=== PATIENT | female | born 1950 | race Caucasian/White ===

== ENCOUNTER 2016-12-07 12:57 | Emergency (ER) | payer MEDICARE, OTHER ==
[~2016-12-07] VITALS: Ht 162.6 cm; Wt 92.5 kg
[~2016-12-07 12:57] MED LIST: ASPI-482 PO; BUSP5TAB PO; CITA40TA12 PO; CYCL-331 PO; LAMO100T PO; LEVO75TA5 PO; LISI1TAB3 PO; NEBI5TAB2 PO; PANT40TA3 PO; PANT40TA5 PO; PRAV80TA2 PO; TIOT18CA IH; TIZA4TAB8 PO; TRAZADONE; VARE1TAB20 PO; ZOLP10TA PO
[2016-12-07 13:05] VITALS: BP 129/74
[2016-12-07] MEDS ORDERED: DIAZ5TAB PO (13:35)
--- NOTE | 2016-12-07 13:36 | PHYS DOC ---
Past History Past Medical History: CAD, COPD, GERD, High Cholesterol, Hypertension, Hypothyroid, Lung Disease, Pneumonia, Other Past Surgical History: Cholecystectomy, Hysterectomy, Tubal ligation, Other Smoking: Greater than 1 pack/day Alcohol Use: None Drug Use: None Adult General Chief Complaint Chief Complaint: UPPER EXTREMITY PAIN [facility] This is a very pleasant 66-year-old female who presents with shoulder pain that began her for fall 4 weeks ago. Patient was standing on a unsecured table she is trying to change a light bulb when she fell through the table landing on her right elbow on the table surface at a 90 angle. She really had pain in the elbow and shoulder and was seen and evaluated at a another emergency department. X-rays were completed at the time she was told she had no fracture and the arm. She also was told she had no fracture of the shoulder. Patient's symptoms is not improved and back to stiffness and pain in her shoulder has increased. She describes achy pain with certain range of motion. This patient with external rotation and abduction of the shoulder itself while she reaches overhead. Patient denies any numbness and tingling into the hand forearm elbow or shoulder. She denies any loss of consciousness or neck pain associated with this particular injury. Patient's pain is specifically over the anterior portion of the deltoid along the bicipital groove and is worsened by laying on it or direct pressure over the lateral shoulder. The pain is described as achy about a 9 of 10 with direct pressure is 6 at 10 although time. She is not able to take Tylenol or Motrin [id number] as it affects her stomach and an adverse way. She do not believe her shoulder is fractured but is looking for other alternative treatments for spasm and pain. Review of Systems Review of Systems Constitutional: Denies fever or chills [] Eyes: Denies change in visual acuity, redness, or eye pain [] HENT: Denies nasal congestion or sore throat [] Respiratory: Denies cough or shortness of breath [] Cardiovascular: No additional information not addressed in HPI [] GI: Denies abdominal pain, nausea, vomiting, bloody stools or diarrhea [] : Denies dysuria or hematuria [] Musculoskeletal: Complains of right shoulder pain and right elbow pain Integument: Denies rash or skin lesions [] Neurologic: Denies headache, focal weakness or sensory changes [] Endocrine: Denies polyuria or polydipsia [] Current Medications Current Medications Current Medications Medications (Trade) Dose Ordered Sig/Gaob Start Time Stop Time Status Last Admin Dose Admin Diazepam (Valium) 5 mg 1X ONCE 12/07/16 13:30 12/07/16 13:31 UNV Allergies Allergies Allergies Uncoded Allergies Type Severity Reaction Last Updated Verified PCN Allergy Intermediate 10/25/13 Physical Exam Physical Exam Vital signs reviewed on the chart and documented on the chart demonstrate normal vital signs no hypertension, no hypoxia and no tachypnea no fever. Constitutional: Well developed, well nourished, no acute distress, non-toxic appearance. [] Neck: Normal range of motion, no tenderness, supple, no stridor. [] Cardiovascular:Heart rate regular rhythm, no murmur [] Lungs & Thorax: Bilateral breath sounds clear to auscultation [] Skin: Warm, dry, no erythema, no rash. [] Back: She does have tenderness along the sits muscles posterior aspect of the shoulder and lateral medial shoulder. She also has distinct tenderness to palpation along the bicipital groove that is increased with biceps flexion. She has marked tenderness to palpation with external rotation at the shoulder and internal rotation reaches a positive Hawking's impingement sign. Extremities: He has tenderness to palpation over the anterior and lateral aspect of the deltoid. There is specific tenderness along the groove. Decreased range of motion secondary to pain. Patient has brisk capillary refill +2 over itself. Patient has brisk peripheral pulses at the ulnar radial artery. Patient has tenderness to palpation over the lateral shoulder without obvious signs of crepitus or bony deformity. Elbows with full range of motion no point tenderness at the epicondyles. Neurologic: Alert and oriented X 3, normal motor function, normal sensory function, no focal deficits noted. [] Psychologic: Affect normal, judgement normal, mood normal. [] EKG EKG [] Radiology/Procedures Radiology/Procedures [] Course & Med Decision Making Course & Med Decision Making Pertinent Labs and Imaging studies reviewed. (See chart for details) I reviewed patient's nursing notes and complaint as well as vital signs and my history and physical findings. Patient demonstrates she might be suffering from a bicipital tendinitis from soft tissue trauma. She also might be suffering from a rotator cuff injury. She and I both in agreement that repeat x-rays are not necessary at this time as she has great range of motion and no focal bony tenderness to palpation. Doubt humerus or shoulder fracture. She'll be given a sling, Valium for her muscle spasms as she cannot tolerate Tylenol or any calm his medication with Tylenol or any anti-inflammatories as it affects her stomach adversely. Patient be referred to orthopedic surgery for possible MRI of the shoulder to evaluate for possible soft tissue trauma to her sits muscles. [] Dragon Disclaimer Dragon Disclaimer This chart was dictated in whole or in part using Voice Recognition software in a busy, high-work load, and often noisy Emergency Department environment. It may contain unintended and wholly unrecognized errors or omissions. Departure Departure: Impression: Primary Impression: Contusion Additional Impressions: Bicipital tendinitis Rotator cuff injury Disposition: HOME, SELF-CARE Condition: STABLE Referrals: RUBA MAYS DO (PCP) FOSTER NELSON MD Patient Instructions: Bicipital Tendonitis, Contusion, Rotator Cuff Injury Additional Instructions: Please follow-up with orthopedist surgery within this next week to continue to evaluate for the possibility of rotator cuff tear. I would also advise you that you follow up with him to monitor your symptoms and possibly treat them with other modalities other than what we can provide Scripts Diazepam (VALIUM) 5 Mg Tablet 5 MG PO TID for 5 Days, #15 TAB Please use one tablet every 8 hours as needed for muscle spasms. Do not drink alcohol or use other narcotics with this medication. Prov: CHRIST AUSTIN MD 12/07/16 Problem Qualifiers CHRIST AUSTIN MD Dec 07, 2016 13:35
[2016-12-07] MEDS ORDERED: diazePAM 5 MG TABLET PO ONE (14:00)
== END 2016-12-07 13:50 | disposition home or self-care (01) ==
LOC: ER 12:57
DX: S46.011A Strain of muscle(s) and tendon(s) of the rotator cuff of right shoulder, initial encounter (principal); S50.01XA Contusion of right elbow, initial encounter; M75.21 Bicipital tendinitis, right shoulder; I25.10 Atherosclerotic heart disease of native coronary artery without angina pectoris; E03.9 Hypothyroidism, unspecified; I10 Essential (primary) hypertension; J44.9 Chronic obstructive pulmonary disease, unspecified; K21.9 Gastro-esophageal reflux disease without esophagitis; F17.200 Nicotine dependence, unspecified, uncomplicated; Z88.0 Allergy status to penicillin; W19.XXXA Unspecified fall, initial encounter; Y93.89 Activity, other specified; Y99.8 Other external cause status; Y92.89 Other specified places as the place of occurrence of the external cause
CPT/HCPCS: 99283

== ENCOUNTER 2016-12-16 13:40 | Emergency (ER) | payer MEDICARE, OTHER ==
[~2016-12-16] VITALS: Ht 162.6 cm; Wt 94.3 kg
[2016-12-16] MEDS ORDERED: KETOROLAC 30 MG/ML VIAL. IM ONE (14:30)
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
[2016-12-16 15:32] VITALS: BP 142/80
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
== END 2016-12-16 15:43 | disposition home or self-care (01) ==
LOC: ER 13:40
DX: S16.1XXA Strain of muscle, fascia and tendon at neck level, initial encounter (principal); S39.012A Strain of muscle, fascia and tendon of lower back, initial encounter; S70.01XA Contusion of right hip, initial encounter; Z72.0 Tobacco use; J44.9 Chronic obstructive pulmonary disease, unspecified; I10 Essential (primary) hypertension; Z88.0 Allergy status to penicillin; V49.9XXA Car occupant (driver) (passenger) injured in unspecified traffic accident, initial encounter; Y93.89 Activity, other specified; Y99.8 Other external cause status; Y92.481 Parking lot as the place of occurrence of the external cause
CPT/HCPCS: 72125; 72170; 96372; 99284; J1885

== ENCOUNTER → 2016-12-16 | Outpatient (CLI) | payer MEDICARE, OTHER ==
[2016-12-07 13:05] VITALS: BP 129/74
[~2016-12-16] MED LIST changes: +DIAZ5TAB PO
--- NOTE | 2016-12-16 11:30 | RAD ---
Right shoulder, 3 views, 12/16/2016: History: Shoulder pain No fracture or dislocation is identified. There is mild spurring along the glenoid rim. There are moderate degenerative changes at the AC joint. There are mild sclerotic and cystic changes at rotator cuff insertion sites on the greater tuberosity. The periarticular soft tissues are unremarkable. IMPRESSION: 1. Moderate degenerative change. 2. No acute bony abnormality is detected.
== END | disposition home or self-care (01) ==
LOC: DXRAD 10:45
PROVIDERS: ATTEND Orthopaedic Surgery
DX: M19.011 Primary osteoarthritis, right shoulder (principal)
CPT/HCPCS: 73030

== ENCOUNTER → 2017-01-02 | Outpatient (CLI) | payer MEDICARE, OTHER ==
[2016-12-16 15:32] VITALS: BP 142/80
[2017-01-02 11:12] LABS: ALBUMIN 3.3 g/dL (3.4-5.0); ALBUMIN/GLOBULIN RATIO 0.8 (1.0-1.7); CALCIUM 9.2 mg/dL (8.5-10.1); GFR 55.5; POTASSIUM 3.9 mmol/L (3.5-5.1); TOTAL BILIRUBIN 0.4 mg/dL (0.2-1.0); TOTAL PROTEIN 7.2 g/dL (6.4-8.2)
[2017-01-02 14:40] LABS: FREE T4 0.93 ng/dL (0.76-1.46); THYROID STIM HORMONE (TSH) 6.154 uIU/mL (0.358-3.740)
== END | disposition home or self-care (01) ==
LOC: LAB 10:26
PROVIDERS: ATTEND Nurse Practitioner
DX: E78.5 Hyperlipidemia, unspecified (principal); R53.83 Other fatigue
CPT/HCPCS: 36415; 80053; 80061; 84439; 84443

== ENCOUNTER → 2017-02-06 | Outpatient (CLI) | payer MEDICARE, OTHER ==
[2017-02-06 10:19] LABS: BASO # 0.1 x10^3/uL (0.0-0.2); BASO % 1 % (0-3); EOS # 0.3 x10^3/uL (0.0-0.7); EOS % 4 % (0-3); HEMATOCRIT 46.2 % (36.0-47.0); HEMOGLOBIN 15.9 g/dL (12.0-15.5); LYMPH # 1.9 x10^3/uL (1.0-4.8); LYMPH % 23 % (24-48); MEAN CORPUSCULAR HEMOGLOBIN 32 pg (25-35); MEAN CORPUSCULAR HGB CONC 34 g/dL (31-37); MEAN CORPUSCULAR VOLUME 93 fL (79-100); MONO # 0.5 x10^3/uL (0.0-1.1); MONO % 6 % (0-9); NEUT # 5.5 x10^3uL (1.8-7.7); NEUT % 66 % (31-73); PLATELET COUNT 229 x10^3/uL (140-400); RED BLOOD COUNT 4.98 x10^6/uL (3.50-5.40); RED CELL DISTRIBUTION WIDTH 13.5 % (11.5-14.5); WHITE BLOOD COUNT 8.4 x10^3/uL (4.0-11.0)
[2017-02-06 10:24] LABS: ALBUMIN 3.1 g/dL (3.4-5.0); ALBUMIN/GLOBULIN RATIO 0.8 (1.0-1.7); CALCIUM 8.7 mg/dL (8.5-10.1); GFR 55.5; POTASSIUM 3.8 mmol/L (3.5-5.1); TOTAL BILIRUBIN 0.3 mg/dL (0.2-1.0)
[2017-02-06 15:32] LABS: FREE T4 0.92 ng/dL (0.76-1.46); THYROID STIM HORMONE (TSH) 8.832 uIU/mL (0.358-3.740)
== END | disposition home or self-care (01) ==
LOC: LAB 09:37
PROVIDERS: ATTEND Nurse Practitioner
DX: E78.5 Hyperlipidemia, unspecified (principal); R53.83 Other fatigue; Z79.899 Other long term (current) drug therapy
CPT/HCPCS: 36415; 80053; 80061; 83036; 84439; 84443; 85025

== ENCOUNTER 2017-12-25 12:28 | Emergency (ER) | payer MEDICARE, OTHER ==
[~2017-12-25] VITALS: Ht 162.6 cm; Wt 94.3 kg
[2017-12-25] MEDS ORDERED: HYDROcodone/APAP 5/325MG 1 TAB TABLET PO ONE (13:00)
[2017-12-25] MEDS ORDERED: diazePAM 5 MG TABLET PO ONE (13:00)
--- NOTE | 2017-12-25 13:03 | PHYS DOC ---
Past History Past Medical History: COPD, Hypertension Additional Past Surgical Histo: knee, shoulder Smoking: Greater than 1 pack/day Alcohol Use: None Drug Use: None Adult General Chief Complaint Chief Complaint: Neck Pain HPI HPI Patient is a 67-year-old female who presents to the emergency department for evaluation of posterior neck pain, which radiates up towards the upper aspect of her cervical spine. The pain is worse with movement. She states that she had a severe pain about 10 years ago that was similar to this, but that went away. She states that she had been fine until about a week ago when she began experiencing a recurrence of her pain. She denies any headaches, numbness, weakness, or vision changes. She denies any dizziness or lightheadedness. She denies any chest pain or shortness of breath. Palpation of her neck, as well as movement of her neck seems to worsen her pain. There are no alleviating factors to her symptoms. Review of Systems Review of Systems Constitutional: Denies fever or chills [] Eyes: Denies change in visual acuity, redness, or eye pain [] HENT: Denies nasal congestion or sore throat [] Respiratory: Denies cough or shortness of breath [] Cardiovascular: The patient denies any shortness of breath, chest pain, palpitations, or orthopnea [] GI: Denies abdominal pain, nausea, vomiting, bloody stools or diarrhea [] : Denies dysuria or hematuria [] Musculoskeletal: Denies back pain or joint pain, other than posterior neck pain. [] Integument: Denies rash or skin lesions [] Neurologic: Denies headache, focal weakness or sensory changes [] Endocrine: Denies polyuria or polydipsia [] All other systems were reviewed and found to be within normal limits, except as documented in this note. Current Medications Current Medications Current Medications Medications (Trade) Dose Ordered Sig/Gabo Start Time Stop Time Status Last Admin Dose Admin Acetaminophen/ Hydrocodone Bitart (Lortab 5/325) 1 tab 1X ONCE 12/25/17 13:00 12/25/17 13:01 UNV Diazepam (Valium) 5 mg 1X ONCE 12/25/17 13:00 12/25/17 13:01 UNV Allergies Allergies Allergies Coded Allergies Type Severity Reaction Last Updated Verified Penicillins Allergy Intermediate 12/16/16 Yes Physical Exam Physical Exam PHYSICAL EXAM: CONSTITUTIONAL: Well developed, well nourished HEAD: normocephalic, atraumatic EENT: PERRL, EOMI. Conjunctivae normal color, sclerae non-icteric; moist mucous membranes. NECK: Supple, there is tenderness to palpation posteriorly at the base of the cervical spine, and the C6/7 area, with mostly posterior midline tenderness but also bilateral paraspinal tenderness. There is no anterior neck tenderness to palpation or carotid bruits present. The remainder of the cervical spine is relatively non-tender; no meningismus. LUNGS: Lungs CTA, breathing even and unlabored. Normal air movement. HEART: Regular rate and rhythm, no murmur CHEST: No deformity; non-tender ABDOMEN: The abdomen is soft, and non-tender, no masses or bruits. EXTREM: Normal ROM; no deformity, no calf tenderness. Normal pulses palpable in all extremities. There is no pedal edema. SKIN: No rash; no diaphoresis NEURO: Alert; normal speech and cognition; CN's grossly intact; strength grossly intact without focal deficit. BACK: No CVA TTP. Current Patient Data Vital Signs Vital Signs Date Time Temp Pulse Resp B/P (MAP) Pulse Ox O2 Delivery O2 Flow Rate FiO2 12/25/17 12:43 98.2 87 18 95 Room Air EKG EKG [] Radiology/Procedures Radiology/Procedures [PROCEDURE: CT CERVICAL SPINE WO CONTRAST CT study of the cervical spine without contrast Clinical indications: Posterior neck pain for 2 days. COMPARISON: Cervical spine CT study dated December 16, 2016. TECHNIQUE: Noncontrast helical CT scanning of the cervical spine was performed. Multiplanar 2-D reconstructions were generated. PQRS compliance Statement One or more of the following individualized dose reduction techniques were utilized for this study: 1. Automated exposure control 2. Adjustment of the mA and/or kV according to patient size 3. Use of iterative reconstruction technique FINDINGS: No acute fracture or discitis or osteolytic process is evident. No perching of facet joints is seen. There is degenerative endplate spurring and disc space narrowing at C3-4 and C4-5 and C5-6 and C6-7 and C7-T1. Spurring is most prominent at C5-C6. This results in a mild AP dimensional spinal canal stenosis which measures 10 mm in AP dimension within the midline. No new focal disc protrusion is evident. There is severe narrowing of the left neural foramen at the C5-6 level. IMPRESSION: No acute fracture. Degenerative cervical spondylosis most marked at C5-C6. Mild spinal canal stenosis and severe left neural foraminal narrowing is seen at this level. This is unchanged.] Course & Med Decision Making Course & Med Decision Making Pertinent Imaging studies reviewed. (See chart for details) [2:10 PM: The patient's condition remained stable. She states she is unable to take NSAIDs. I discussed importance of close PCP follow-up and return precautions.] Dragon Disclaimer Dragon Disclaimer This electronic medical record was generated, in whole or in part, using a voice recognition dictation system. Departure Departure: Impression: Primary Impression: Degenerative disc disease Additional Impression: Neck pain Disposition: 01 HOME, SELF-CARE Condition: STABLE Referrals: KVNG VIGIL APRN (PCP) Patient Instructions: Cervical Sprain, Degenerative Disk Disease Additional Instructions: Applying a heating pad to the affected area may help improve your symptoms. The prescribed medications may cause drowsiness-use caution while taking. Follow -up with your primary care provider within the next 2-3 days to help facilitate further outpatient management of your symptoms. Scripts Metaxalone (SKELAXIN) 800 Mg Tablet 1 TAB PO TID, #30 TAB Prov: GUS MCALLISTER MD 12/25/17 Acetaminophen With Codeine (TYLENOL WITH CODEINE #3 TABLET) 1 Each Tablet 1 TAB PO Q4-6HRS, #30 TAB Prov: GUS MCALLISTER MD 12/25/17 Problem Qualifiers GUS MCALLISTER MD Dec 25, 2017 13:03
--- NOTE | 2017-12-25 13:58 | RAD ---
CT study of the cervical spine without contrast Clinical indications: Posterior neck pain for 2 days. COMPARISON: Cervical spine CT study dated December 16, 2016. TECHNIQUE: Noncontrast helical CT scanning of the cervical spine was performed. Multiplanar 2-D reconstructions were generated. PQRS compliance Statement One or more of the following individualized dose reduction techniques were utilized for this study: 1. Automated exposure control 2. Adjustment of the mA and/or kV according to patient size 3. Use of iterative reconstruction technique FINDINGS: No acute fracture or discitis or osteolytic process is evident. No perching of facet joints is seen. There is degenerative endplate spurring and disc space narrowing at C3-4 and C4-5 and C5-6 and C6-7 and C7-T1. Spurring is most prominent at C5-C6. This results in a mild AP dimensional spinal canal stenosis which measures 10 mm in AP dimension within the midline. No new focal disc protrusion is evident. There is severe narrowing of the left neural foramen at the C5-6 level. IMPRESSION: No acute fracture. Degenerative cervical spondylosis most marked at C5-C6. Mild spinal canal stenosis and severe left neural foraminal narrowing is seen at this level. This is unchanged. Electronically signed by: Kirit Rubin MD (12/25/2017 1:55 PM) [facility]
[2017-12-25] MEDS ORDERED: ACET-704 PO (14:15)
[2017-12-25] MEDS ORDERED: META-21 PO (14:15)
[2017-12-25 14:29] VITALS: BP 145/76
== END 2017-12-25 14:30 | disposition home or self-care (01) ==
LOC: ER 12:28
DX: M47.892 Other spondylosis, cervical region (principal); J44.9 Chronic obstructive pulmonary disease, unspecified; I10 Essential (primary) hypertension; Z87.891 Personal history of nicotine dependence; Z88.0 Allergy status to penicillin
CPT/HCPCS: 72125; 99284-25

== ENCOUNTER → 2017-12-28 | Outpatient (CLI) | payer MEDICARE, OTHER ==
[2017-12-25 14:29] VITALS: BP 145/76
[~2017-12-28] MED LIST changes: +ACET-704 PO; +META-21 PO
== END | disposition home or self-care (01) ==
LOC: SURG 13:57
PROVIDERS: ATTEND Anesthesiology Pain Medicine
DX: I11.0 Hypertensive heart disease with heart failure (principal); I50.9 Heart failure, unspecified; E78.5 Hyperlipidemia, unspecified; E78.00 Pure hypercholesterolemia, unspecified; M19.011 Primary osteoarthritis, right shoulder; E03.9 Hypothyroidism, unspecified; J44.9 Chronic obstructive pulmonary disease, unspecified; K21.9 Gastro-esophageal reflux disease without esophagitis; I25.10 Atherosclerotic heart disease of native coronary artery without angina pectoris; Z90.49 Acquired absence of other specified parts of digestive tract; Z90.710 Acquired absence of both cervix and uterus; Z87.891 Personal history of nicotine dependence; Z88.0 Allergy status to penicillin
CPT/HCPCS: 99204

== ENCOUNTER → 2018-02-08 | Outpatient (CLI) | payer MEDICARE, OTHER ==
[~2018-02-08] MED LIST changes: +BUPIVACAINE MPF 0.25% 30 ML VIAL. ONE; +LIDOCAINE 1% PF 30 ML VIAL. ONE; +MIDAZOLAM HCL PF 2 MG/2 ML VIAL. ONE
== END | disposition home or self-care (01) ==
LOC: SURG 14:05
PROVIDERS: ATTEND Anesthesiology Pain Medicine
DX: M79.18 Myalgia, other site (principal); K21.9 Gastro-esophageal reflux disease without esophagitis; E03.9 Hypothyroidism, unspecified; Z79.899 Other long term (current) drug therapy; Z79.82 Long term (current) use of aspirin; Z88.0 Allergy status to penicillin
CPT/HCPCS: 20553; J2001; J2250; J3010; J3490; 99152; 99156

== ENCOUNTER → 2018-04-03 | Outpatient (CLI) | payer MEDICARE, OTHER ==
[~2018-04-03] MED LIST changes: -BUPIVACAINE MPF 0.25% 30 ML VIAL. ONE; -LIDOCAINE 1% PF 30 ML VIAL. ONE; -MIDAZOLAM HCL PF 2 MG/2 ML VIAL. ONE
--- NOTE | 2018-04-03 15:42 | RAD ---
CT HEAD WO CONTRAST Clinical indications: HEADACHE, severe Technique: Noncontrast axial cross sectional scanning of the head was performed. PQRS compliance Statement One or more of the following individualized dose reduction techniques were utilized for this study: 1. Automated exposure control 2. Adjustment of the mA and/or kV according to patient size 3. Use of iterative reconstruction technique COMPARISON: None available. Findings: No acute intracranial hemorrhage or midline shift or mass-effect or hydrocephalus or extra-axial fluid collection is seen. No focal hypodense area or sulci effacement is seen to indicate an acute infarct or edema radiographically. No skull fracture or pneumocephalus is seen. No opacification of the mastoid sinuses or the middle ear cavities or the paranasal sinuses is seen. The maxillary sinuses are not completely seen in this study. Impression: No acute intracranial abnormality is seen. Electronically signed by: Kirit Rubin MD (04/03/2018 3:38 PM) [facility]
== END | disposition home or self-care (01) ==
LOC: CT 14:24
PROVIDERS: ATTEND Psychiatry & Neurology Neurology
DX: R51 Headache (principal)
CPT/HCPCS: 36415; 70450; 85651

== ENCOUNTER 2021-03-25 16:43 | Emergency (ER) | payer MEDICARE, OTHER ==
[~2021-03-25] VITALS: Ht 162.6 cm; Wt 88.0 kg
[~2021-03-25 16:43] MED LIST changes: -CYCL-331 PO; +CYCL10TA19 PO; -LAMO100T PO; +LAMO100T8 PO; -LISI1TAB3 PO; +LISI1TAB35 PO; -PANT40TA5 PO; +PANT40TA6 PO
--- NOTE | 2021-03-25 18:35 | PHYS DOC ---
Past History Past Medical History: COPD, Hypertension Additional Past Surgical Histo: knee, shoulder Smoking: Greater than 1 pack/day Alcohol Use: None Drug Use: None General Adult EDM: Chief Complaint: MECHANICAL FALL HPI: HPI: 70-year-old female presents with mechanical falls at home and shortness of breath. The patient is very hard of hearing and her hearing aids are . She tells me that she has fallen a couple times because she has been startled. She does not describe any further the circumstances of her falls. She was reported to have oxygen in the low 80s on arrival. The patient has a history of COPD. She is still a smoker. She was positive for COVID-19 8 days ago. She is normally on 3 L of oxygen at night but not during the day. She denies fever or chills. She denies any significant injuries from her falls. Review of Systems: Review of Systems: Constitutional: Denies fever or chills Eyes: Denies change in visual acuity HENT: Denies nasal congestion or sore throat Respiratory: shortness of breath Cardiovascular: Denies chest pain or edema GI: Denies abdominal pain, nausea, vomiting, bloody stools or diarrhea : Denies dysuria Musculoskeletal: Denies back pain or joint pain Integument: Denies rash Neurologic: Denies headache, focal weakness or sensory changes Endocrine: Denies polyuria or polydipsia Lymphatic: Denies swollen glands Psychiatric: Denies depression or anxiety Allergies: Allergies: Allergies Coded Allergies Type Severity Reaction Last Updated Verified Penicillins Allergy Intermediate 12/16/16 Yes Physical Exam: PE: Constitutional: Well developed, well nourished, obese, no acute distress, non- toxic appearance. [] HENT: Normocephalic, atraumatic, bilateral external ears normal, oropharynx moist, no oral exudates, nose normal. Very hard of hearing. [] Eyes: PERRLA, EOMI, conjunctiva normal, no discharge. [] Neck: Normal range of motion, no tenderness, supple, no stridor. [] Cardiovascular: Heart rate regular rhythm, no murmur [] Lungs & Thorax: Decreased breath sounds in the right base [] Abdomen: Bowel sounds normal, soft, no tenderness, no masses, no pulsatile masses. [] Skin: Warm, dry, no erythema, no rash. [] Back: No tenderness, no CVA tenderness. [] Extremities: No tenderness, no cyanosis, no clubbing, ROM intact, no edema. [] Neurologic: Alert and oriented X 3, normal motor function, normal sensory function, no focal deficits noted. [] Psychologic: Affect normal, judgement normal, mood normal. [] EKG: EKG: Sinus rhythm, rate 75, leftward axis, no ST elevation or depression. [] Radiology/Procedures: Radiology/Procedures: [] Heart Score: C/O Chest Pain: N/A Risk Factors: Risk Factors: DM, Current or recent (<one month) smoker, HTN, HLP, family history of CAD, obesity. Risk Scores: Score 0 - 3: 2.5% MACE over next 6 weeks - Discharge Home Score 4 - 6: 20.3% MACE over next 6 weeks - Admit for Clinical Observation Score 7 - 10: 72.7% MACE over next 6 weeks - Early Invasive Strategies Course & Med Decision Making: Course & Med Decision Making Pertinent Labs and Imaging studies reviewed. (See chart for details) The patient does not want to cooperate. She does not want to be here. She would not let us put in an IV intake blood. I did get an EKG which is unremarkable and a chest x-ray which shows right-sided pneumonia. I explained to the patient that she has pneumonia and she should stay in the hospital. She refuses to stay in the hospital. I negotiated with her to give her Rocephin IM, Decadron p.o., and azithromycin p.o. She will let us do that and send her home with a prescription. I told her that this was dangerous and that she could get worse or and she wants to go home. I have also strongly encouraged her to stay on her 3 L of oxygen 14/11. The patient will have to sign out AMA. [] Dragon Disclaimer: Treva Disclaimer: This electronic medical record was generated, in whole or in part, using a voice recognition dictation system. Departure Departure: Impression: Primary Impression: COVID-19 Additional Impression: Pneumonia involving right lung Disposition: LEFT AGAINST MEDICAL ADVICE Condition: GUARDED Referrals: KVNG VIGIL APRN (PCP) Patient Instructions: Pneumonia, Adult, [id number] Additional Instructions: You have been tested for or diagnosed with COVID-19. It is an infection caused by a new type of coronavirus. COVID-19 will cause cold-like or mild flu symptoms in most. It can cause more severe symptoms like problems breathing in some. There is no treatment for COVID-19. The body will clear the infection over time. Self-care will help to ease discomfort. Steps to Take: Self-Care Rest as needed. Healthy habits may help you feel better. Steps include: Choose healthy foods including fruits and vegetables. Drink water throughout the day. Get plenty of sleep each night. If you smoke, try to quit. It may ease breathing. Avoid alcohol. Keep Others Healthy The virus can spread to others. Droplets are released every time you sneeze or cough. The droplets can get into the mouth, nose, or eyes of people near you and lead to infection. To lower the chances of spreading COVID-19 to others: Stay at home until your doctor has said it is safe to leave. If you tested positive this will mean staying isolated until both of the following are true: At least 7 days have passed since the start of illness. You are free of fever for at least 72 hours without the use of medicine. During this time: - Avoid public areas, events, or transportation. Do not return to work or school until your doctor has said it is safe to do so. - Call ahead if you need to go to a medical center. Let them know you may have COVID-19. It will help them guide you where to go. They may also ask you to wear a facemask when you come to the office. - If you call for emergency medical services, let them know you may have COVID- 19. While at home: - Try to avoid close contact with others. Stay about 6 feet away. - If possible, spend most of your time in a separate room from others. - Use a face mask if you will be in close contact with others such as sharing a room or vehicle. - Have someone wipe down common surfaces in the home. Use household negative turner every day on areas like doorknobs, counters, or sinks. - Cough or sneeze into a tissue. Throw the tissue away right after use. If a tissue is not available, cough or sneeze into your elbow. - Wash your hands often. Wash them after sneezing or coughing. Use soap and water and wash for at least 20 seconds. Alcohol based hand kettle cleaner can be used if soap and water is not available. - Do not prepare food for others. Avoid sharing personal items like forks, spoons, or toothbrushes. - Avoid close contact with pets while you are sick. There is no evidence of the virus passing to pets. This is a safety step until more is known about this virus. Isolation can be frustrating. Social interaction can help. Keep in touch with friends and family through phone and tech options. You can still interact with others in your home, just keep a safe distance of about 6 feet. Follow-up: Your doctors office will check in with you to see if there are any changes in your health. You may be asked to keep track of symptoms to share with them. They will also let you know when you are clear to be in public again. Problems to Look Out For: Contact your doctor if your recovery is not going as you expect. Get emergency care if you have problems such as: - Trouble breathing - Nonstop chest pain or pressure - Changes in awareness, confusion, or problems waking - Lips or face have bluish color - Worsening of symptoms If you think you have an emergency, call for emergency medical services right away. As [facility] from [facility] Azithromycin (AZITHROMYCIN TABLET) 250 Mg Tablet 250 MG PO DAILY for ANTI-BIOTIC for 4 Days, #4 TAB 0 Refills Prov: DEDRICK WELLS DO 03/25/21 Dexamethasone (Decadron) 4 Mg Tablet 1 TAB PO BID for covid-19 for 4 Days, #8 TAB 0 Refills Prov: DEDRICK WELLS DO 03/25/21 DEDRICK WELLS DO Mar 25, 2021 18:35
[2021-03-25 18:56] LABS: BACTERIA,URINE FEW /HPF (0-FEW); BILIRUBIN,URINE MOD (NEG); CLARITY,URINE HAZY; COLOR,URINE YELLOW; GLUCOSE,URINE NEG (NEG); HYALINE CASTS, URINE MOD /HPF; NITRITE,URINE NEG (NEG); SQUAMOUS EPITHELIAL CELL,UR MOD /LPF; YEAST,URINE PRESENT /HPF
[2021-03-25] MEDS ORDERED: AZITHROMYCIN 250 MG TABLET. PO ONE ×2 (19:00→19:15)
[2021-03-25] MEDS ORDERED: DEXAMETHASONE SOD PHOS 10 MG/ML VIAL. IVP ONE (19:00)
[2021-03-25] MEDS ORDERED: DEXA4TAB63 PO (19:09)
[2021-03-25] MEDS ORDERED: AZIT250T6 PO (19:09)
[2021-03-25] MEDS ORDERED: cefTRIAXone IM 1 GM VIAL IM ONE (19:15)
[2021-03-25] MEDS ORDERED: DEXAMETHASONE SOD PHOS 10 MG/ML VIAL. PO ONE (19:15)
--- NOTE | 2021-03-25 19:28 | RAD ---
XR CHEST 1V Clinical Indication: Reason: SOB, COVID + / Comparison: None. Findings: The cardiomediastinal silhouette is normal There are alveolar and interstitial patchy opacities in th e right midlung and in the bilateral lung bases.. There is no pneumothorax. No pleural effusion is ap preciated. No acute bone abnormality. IMPRESSION: Patchy interstitial and alveolar opacities in the right mid and lower lung and minimal in the left jimmy ng base may be pneumonia including Covid pneumonia given the history versus atelectasis or edema. Electronically signed by: Daniel Wyatt MD (03/25/2021 7:25 PM) [facility]
[2021-03-25 19:29] VITALS: BP 155/61
--- NOTE | 2021-03-26 07:14 | EKG ---
[address] [address] Test Date: 2021-03-25 Test Time: 18:58:22 Pat Name: CARL DAMON Department: Room: Gender: F Hris Specialist: : [id number] Requested By: DEDRICK WELLS Order Number: [id number] Reading MD: Jayme Cavanaugh MD Measurements Intervals Sandy Rate: 75 P: 53 HI: 146 QRS: -19 QRSD: 108 T: 34 QT: 408 QTc: 458 Interpretive Statements SINUS RHYTHM Electronically Signed On 03-28-2021 20:55:44 [employer] by Jayme Cavanaugh MD
== END 2021-03-25 19:35 | disposition left against medical advice (07) ==
LOC: ER 16:43
DX: U07.1 COVID-19 (principal); J12.82 Pneumonia due to coronavirus disease 2019; I10 Essential (primary) hypertension; F17.210 Nicotine dependence, cigarettes, uncomplicated; Z88.0 Allergy status to penicillin
CPT/HCPCS: 71045; 81001; 93005; 96372; 99285; J0696; J1100